=== PATIENT | male | born 2000 | race Caucasian/White ===

== ENCOUNTER 2020-09-20 01:22 | Emergency (ER) | payer MEDICAID ==
--- NOTE | 2020-09-20 01:48 | EDM.PDOC ---
ED HPI GENERAL MEDICAL PROBLEM - General Chief Complaint: Back Pain or Injury Stated Complaint: BACK PAIN Time Seen by Provider: 09/20/20 01:30 Source of Information: Reports: Patient History Limitations: Reports: No Limitations - History of Present Illness INITIAL COMMENTS - FREE TEXT/NARRATIVE: The patient presents with thoracic back pain. He said yesterday morning and fell down about 5 steps and landed on his lower thoracic back. He did not hit his head or hurt his neck. He has pain to his back. He said when he was sitting on the toilet today his legs went numb. He has no weakness in his legs and he has no bowel or bladder problems. Onset: Sudden Duration: Day(s): (yesterday) Location: Reports: Back Quality: Reports: Sharp Severity: Moderate Improves with: Reports: Immobilization Worsens with: Reports: Movement Context: Reports: Trauma (fell down about 5 steps) Associated Symptoms: Reports: No Other Symptoms Lower Back Pain Score (Numeric/FACES): 6 - Related Data Allergies Allergy/AdvReac Type Severity Reaction Status Date / Time No Known Allergies Allergy Verified 09/20/20 01:38 Home Meds: Home Meds Cyclobenzaprine [Flexeril] 10 mg PO TID PRN #20 tab 09/20/20 [Rx] ED ROS GENERAL - Review of Systems Review Of Systems: See Below Constitutional: Reports: No Symptoms HEENT: Reports: No Symptoms Respiratory: Reports: No Symptoms Cardiovascular: Reports: No Symptoms Endocrine: Reports: No Symptoms GI/Abdominal: Reports: No Symptoms : Reports: No Symptoms Musculoskeletal: Reports: Back Pain Skin: Reports: No Symptoms Neurological: Reports: No Symptoms ED EXAM, UPPER BACK/NECK PAIN - Physical Exam Exam: See Below Exam Limited By: No Limitations General Appearance: Alert, No Apparent Distress Ears Exam: Normal External Exam Head Exam: Atraumatic, Normocephalic Neck Exam: Non-Tender Cardiovascular/Respiratory: Regular Rate, Rhythm, No M/R/G, Normal Breath Sounds, No Respiratory Distress GI/Abdominal: Soft, Non-Tender, No Organomegaly, No Mass Back Exam: Other (Pain upon palpation to the lower thoracic back. With no ecchymosis noted.) Extremities: Normal Inspection Neurologic: No Motor/Sensory Deficits, Alert, Normal Mood/Affect, Oriented x 3 Course - Vital Signs Last Recorded V/S: Last Vital Signs Temp 99 F 09/20/20 01:33 Pulse 98 09/20/20 01:33 Resp 20 09/20/20 01:33 BP 134/87 09/20/20 01:33 Pulse Ox 96 09/20/20 01:33 - Orders/Labs/Meds Orders: Active Orders 24 hr Category Date Time Status Thoracic Spine 2V [CR] Stat Exams 09/20/20 01:43 Ordered - Re-Assessments/Exams Free Text/Narrative Re-Assessment/Exam: 09/20/20 01:47 I have ordered an x-ray of his thoracic spine. 09/20/20 02:15 The x-ray looks good. I will give him a shot of dilaudid and toradol here and get him on some flexeril. Departure - Departure Time of Disposition: 02:20 Disposition: Home, Self-Care 01 Condition: Good Clinical Impression: Fall Qualifiers: Encounter type: initial encounter Qualified Code(s): W19.XXXA - Unspecified fall, initial encounter Thoracic back pain Qualifiers: Chronicity: acute Back pain laterality: unspecified Qualified Code(s): M54.6 - Pain in thoracic spine - Discharge Information *PRESCRIPTION DRUG MONITORING PROGRAM REVIEWED*: Not Applicable *COPY OF PRESCRIPTION DRUG MONITORING REPORT IN PATIENT ELVIS: Not Applicable Prescriptions: Cyclobenzaprine [Flexeril] 10 mg PO TID PRN #20 tab PRN Reason: Pain Referrals: PCP,None [Primary Care Provider] - Eileen Barrett NP [Nurse Practitioner] - 1 Week Forms: ED Department Discharge, ED Return to Work/School Form Additional Instructions: Ice your back for 15 minutes 3 times per day for 2 days. Take tylenol or motrin for pain. Take the flexeril as well for pain. Follow up with your provider or Eileen Barrett as needed if you are not getting better or if you are worse. Please return if you are worse. Sepsis Event Note (ED) - Evaluation Sepsis Screening Result: No Definite Risk - Focused Exam Vital Signs: Vital Signs Temp Pulse Resp BP Pulse Ox 09/20/20 01:33 99 F 98 20 134/87 96 - My Orders Last 24 Hours: My Active Orders 09/20/20 01:43 Thoracic Spine 2V [CR] Stat - Assessment/Plan Last 24 Hours: My Active Orders 09/20/20 01:43 Thoracic Spine 2V [CR] Stat
[2020-09-20] MEDS ORDERED: Ketorolac 60 MG/2 ML SDV IM ONE (02:16)
[2020-09-20] MEDS ORDERED: HYDROmorphone 1 MG/ML Syringe IM ONE (02:16)
--- NOTE | 2020-09-20 05:53 | CR ---
Thoracic spine: AP, lateral and swimmer's views of the thoracic spine were obtained. Vertebral body heights and disc spaces are maintained. Pedicles are intact. No discrete fracture or subluxation is seen. No paravertebral soft tissue swelling is noted. Impression: 1. No abnormality is appreciated on 3 view thoracic spine study. Diagnostic code #1
== END 2020-09-20 02:34 | disposition home or self-care (01) ==
LOC: JD.ED 01:22
DX: M54.6 Pain in thoracic spine (principal)
CPT/HCPCS: 72070; 96372; 99283; J1170; J1885

== ENCOUNTER 2023-04-20 20:13 | Emergency (ER) | payer BC, MEDICAID ==
[2023-04-20 21:18] LABS: CORONAVIRUS COVID-19 NAA POSITIVE (NEGATIVE); INFLUENZA A NAA NEGATIVE (NEGATIVE); RESPIRATORY SYNCYTIAL VIR NAA NEGATIVE (NEGATIVE)
[2023-04-20] MEDS ORDERED: Acetaminophen 325 MG Tab PO ONE (21:21)
[2023-04-20] MEDS ORDERED: Ibuprofen 600 MG Tab PO ONE (21:21)
[2023-04-20] MEDS ORDERED: Ondansetron 4 MG Tab.DIS PO ONE (21:21)
== END 2023-04-20 21:31 | disposition home or self-care (01) ==
LOC: JD.ED 20:13
DX: U07.1 COVID-19 (principal)
CPT/HCPCS: 0241U; 99283; A9270